=== PATIENT | female | born 1970 ===

== ENCOUNTER 2025-07-30 10:49 | Day surgery (SDC) | payer OTHER ==
[~2025-07-30] VITALS: Ht 154.9 cm; Wt 66.3 kg
[~2025-07-30 10:49] MED LIST: Balanced Salt Epinephrine Irrigation Solution 500 mL IR SCH; Moxifloxacin HCL 0.5 MG/0.1 ML 0.4MLSYR LEFTEYE SCH; NS 500 ML IV ONE; PHENYLEPHRINE\\TROPICAMIDE\\TETRACAINE OPHTHALMIC DILATING SOLN LEFTEYE PRN; Povidone-Iodine 450 DROP/30 ML Solution LEFTEYE SCH; Povidone-Iodine 450 DROP/30 ML Solution ONE; Tetracaine HCl/Pf 0.5% Opth Soln 4 ml ONE
[2025-07-30] MEDS ORDERED: LIOT5 PO (11:30)
[2025-07-30] MEDS ORDERED: LEVSOD100 PO (11:30)
[2025-07-30] MEDS ORDERED: PROG100 PO (11:31)
[2025-07-30] MEDS ORDERED: Prinivil10 MG PO (11:31)
[2025-07-30] MEDS ORDERED: EZET10 (11:31)
[2025-07-30] MEDS ORDERED: NS 500 ML IV ONE (11:39)
[2025-07-30] MEDS ORDERED: Midazolam HCl 1MG / ML 2ML Vial ONE (12:05)
== END 2025-07-30 12:49 | disposition home or self-care (01) ==
LOC: ORSCSDS 10:49
PROVIDERS: Student in an Organized Health Care Education/Training Program
PROC: 08RK3JZ Replacement of Left Lens with Synthetic Substitute, Percutaneous Approach (ICD-10-PCS; principal; 2025-07-30 12:30)
DX: H25.813 Combined forms of age-related cataract, bilateral (principal); H52.202 Unspecified astigmatism, left eye; I10 Essential (primary) hypertension; Z79.899 Other long term (current) drug therapy
CPT/HCPCS: J2250; J7040; V2632

== ENCOUNTER 2025-08-13 11:08 | Day surgery (SDC) | payer OTHER ==
[~2025-08-13] VITALS: Ht 154.9 cm; Wt 66.4 kg
[~2025-08-13 11:08] MED LIST changes: +EZET10; +FentaNYL Citrate 50 MCG/ML 2 ML Injection ONE; +LEVSOD100 PO; +LIOT5 PO; +Midazolam HCl 1MG / ML 2ML Vial ONE; -Moxifloxacin HCL 0.5 MG/0.1 ML 0.4MLSYR LEFTEYE SCH; +Moxifloxacin HCL 0.5 MG/0.1 ML 0.4MLSYR RIGHTEYE SCH; -NS 500 ML IV ONE; -PHENYLEPHRINE\\TROPICAMIDE\\TETRACAINE OPHTHALMIC DILATING SOLN LEFTEYE PRN; +PHENYLEPHRINE\\TROPICAMIDE\\TETRACAINE OPHTHALMIC DILATING SOLN RIGHTEYE PRN; +PROG100 PO; -Povidone-Iodine 450 DROP/30 ML Solution LEFTEYE SCH; +Povidone-Iodine 450 DROP/30 ML Solution RIGHTEYE SCH; +Prinivil10 MG PO
--- NOTE | 2025-08-13 12:13 | NUR ---
08/13/[address] AT BEDSIDE
== END 2025-08-13 12:27 | disposition home or self-care (01) ==
LOC: ORSCSDS 11:08
PROVIDERS: Student in an Organized Health Care Education/Training Program
PROC: 08RJ3JZ Replacement of Right Lens with Synthetic Substitute, Percutaneous Approach (ICD-10-PCS; principal; 2025-08-13 12:30)
DX: H25.811 Combined forms of age-related cataract, right eye (principal); Z96.1 Presence of intraocular lens; Z79.899 Other long term (current) drug therapy
CPT/HCPCS: J2250; J3010; J7120; V2632